=== PATIENT | female | born 1945 | race Asian ===

== ENCOUNTER 2016-08-07 09:57 | Emergency (ER) | payer OTHER ==
[~2016-08-07] VITALS: Ht 165.1 cm; Wt 59.0 kg
[2016-08-07 10:18] VITALS: BP 130/75
--- NOTE | 2016-08-07 10:24 | NUR ---
Patient transferred to bed 2 via wheelchair by grupo, accompanied by family. RN evaluating patient at bedside.
--- NOTE | 2016-08-07 10:26 | NUR ---
71F BIB FAMILY C/O RT WRIST PAIN S/P FALL WHILE WALKING DOG X 1 HR AGO TODAY; PT DENIES LOC AT THIS TIME. PT C/O THROBBING PAIN, RADIATING UP RT ARM, 01/16; SWELLING NOTED TO RT WRIST AT THIS TIME; RT CAP REFILL <3 SECS, RT RADIAL PULSE PALPABLE, NO LOSS OF SENSATION TO RT HAND/WRIST AT THIS TIME; PT STATES RT RIBS HURT W/ AMBULATION; NO REDNESS/SWELLING TO RT RIBS AT THIS TIME; A&OX4, BL LUNG SOUNDS CLEAR, RR EVEN/UNLABORED, SMALL ABRASION NOTED TO RT UPPER LIP, NO ACTIVE BLEEDING AT THIS TIME; PT RESTING IN BED W/ HOB ELEVATED AND IN LOWEST POSITION; FAMILY AT BEDSIDE. ER MD MADE AWARE OF STATUS. WILL CONTINUE TO MONITOR.
--- NOTE | 2016-08-07 11:15 | NUR ---
ER MD DR. SCHUSTER EVALUATING PT AT BEDSIDE.
[2016-08-07 11:53] VITALS: BP 132/72
--- NOTE | 2016-08-07 11:53 | NUR ---
Patient discharged with v/s stable. Written and verbal after care instructions given and explained. Patient alert, oriented and verbalized understanding of instructions. Ambulatory with steady gait. All questions addressed prior to discharge. ID band removed. Patient advised to follow up with PMD. Rx of TYLENOL W/ CODEINE NO.3 given. Patient educated on indication of medication including possible reaction and side effects. Opportunity to ask questions provided and answered.
== END 2016-08-07 11:53 | disposition home or self-care (01) ==
LOC: MED 09:57
DX: S52.501A Unspecified fracture of the lower end of right radius, initial encounter for closed fracture (principal); R03.0 Elevated blood-pressure reading, without diagnosis of hypertension; W19.XXXA Unspecified fall, initial encounter; Y93.K1 Activity, walking an animal; Y92.89 Other specified places as the place of occurrence of the external cause; Y99.8 Other external cause status